=== PATIENT | male | born 1975 | race Caucasian/White ===

== ENCOUNTER 2019-06-18 17:08 | Inpatient (IN) | payer BC ==
[~2019-06-18] VITALS: Ht 180.3 cm; Wt 113.4 kg
--- NOTE | 2019-06-18 17:19 | NUR ---
CAME IN FOR R ELBOW AND ARM SORENESS AND TENDER x 1 DAY. TO ER BED 10, HOOKED TO MONITOR, NO DISTRESS NOTED, CHANGED TO HOSPITAL GOWN, PROVIDED W WARM BLANKET, AWAITING MD JOHNSON.
--- NOTE | 2019-06-18 17:24 | NUR ---
VIRGINIA OREILLY AT BEDSIDE
[2019-06-18] MEDS ORDERED: CLINDAMYCIN 600 MG in IV NS 0.9% 50 ML IV STA (17:28)
[2019-06-18] MEDS ORDERED: ACETAMINOPHEN ES 500 MG TABLET PO ONE (17:30)
[2019-06-18] MEDS: IV NS 0.9% 1,000 ML BAG IV ONE ×2 (17:30→17:44)
[2019-06-18] MEDS ORDERED: CEFTRIAXONE 1GM BAG (ER ONLY) 1 GM/50 ML PIGGYBACK IV ONE (17:30)
[2019-06-18 17:35] LABS: BASOPHILS % (AUTO) 0.1 % (0.0-2.0); EOSINOPHILS % (AUTO) 0.1 % (0.0-6.0); HEMATOCRIT 43 % (39-51); HEMOGLOBIN 14.7 g/dL (13.5-17.5); LYMPHOCYTES # (AUTO) 1.7 /CMM (0.8-4.8); LYMPHOCYTES % (AUTO) 7.9 % (20.0-44.0); MEAN CORPUSCULAR HGB CONC 34 g/dl (31.0-36.0); MEAN CORPUSCULAR VOLUME 88 fL (80-96); MONOCYTES # (AUTO) 1.2 /CMM (0.1-1.30); MONOCYTES % (AUTO) 5.4 % (2.0-12.0); NEUTROPHILS # (AUTO) 18.9 /CMM (1.8-8.9); NEUTROPHILS % (AUTO) 86.5 % (43.0-81.0); PLATELET COUNT (AUTO) 204 /CMM (150-450); RED BLOOD CELL COUNT(AUTO) 4.87 MIL/uL (4.5-6.0); WHITE BLOOD COUNT (AUTO) 21.9 K/uL (4.3-11.0)
[2019-06-18] MEDS ORDERED: ACETAMINOPHEN ES 500 MG TABLET ONE (17:35)
[2019-06-18] MEDS ORDERED: CEFTRIAXONE 1GM BAG (ER ONLY) 50 ML IV ONE (17:35)
[2019-06-18 17:49] LABS: APPEARANCE,URINE Clear (CLEAR); BILIRUBIN,URINE Negative (NEGATIVE); BLOOD, URINE Small Ery/uL (NEGATIVE); COLOR,URINE Yellow (YELLOW); KETONES,URINE 15 (NEGATIVE); LEUKOCYTE ESTERASE ,URINE Negative (NEGATIVE); NITRITE, URINE Negative (NEGATIVE); PROTEIN,URINE 100 mg/dl (NEGATIVE); UGLUCOSE Negative (NEGATIVE); UROBILINOGEN,URINE 0.2 EU/dL (0.2)
[2019-06-18 17:53] LABS: BACTERIA,URINE Few /HPF (None Seen); SQUAMOUS EPITHELIAL CELL,UR Few /HPF (None Seen); WBC,URINE 0-2 /HPF (0-3)
[2019-06-18] MEDS ORDERED: IV NS 0.9% 1,000 ML BAG IV ONE (18:00)
[2019-06-18 18:08] LABS: ALBUMIN 3.9 g/dL (3.4-5.0); BILIRUBIN,DIRECT 0.2 mg/dL (0.0-0.2); BILIRUBIN,TOTAL 1.1 mg/dL (0.2-1.0); CREATININE 1.3 mg/dL (0.6-1.3); POTASSIUM 3.8 mmol/L (3.5-5.1); TOTAL PROTEIN, SERUM 7.3 g/dL (6.4-8.2)
[2019-06-18] MEDS ORDERED: CLINDAMYCIN 600 MG in IV D5W 50 ML IV ONE (18:30)
[2019-06-18] MEDS ORDERED: MAGNESIUM HYDROXIDE 30 ML UDC PO PRN (19:00)
[2019-06-18] MEDS ORDERED: ZOLPIDEM TARTRATE 5 MG TABLET PO PRN (19:00)
[2019-06-18] MEDS ORDERED: ONDANSETRON HCL/PF 4 MG/2 ML VIAL IVP PRN (19:00)
[2019-06-18] MEDS ORDERED: MAG HYDROX/AL HYDROX/SIMETH 30 ML UDC PO PRN (19:00)
[2019-06-18] MEDS ORDERED: Z GUARD REMEDY 2 OZ OINT TP PRN (19:00)
[2019-06-18] MEDS ORDERED: KETOROLAC TROMETHAMINE INJ 30 MG/ML VIAL IV ONE (19:30)
--- NOTE | 2019-06-18 19:30 | NUR ---
REPORT GIVEN TO ÁLVARO WINSLOW FOR MIKEL
--- NOTE | 2019-06-18 19:56 | NUR ---
MS 321-2
[2019-06-18] MEDS ORDERED: KETOROLAC TROMETHAMINE INJ 30 MG/ML VIAL ONE (20:11)
--- NOTE | 2019-06-18 20:20 | NUR ---
REPORT GIVEN TO GOLDY CONTRERAS FOR MIKEL. TO RM 321-2
[2019-06-18 20:30] VITALS: BP 122/71
--- NOTE | 2019-06-18 20:56 | NUR ---
PT TRANSPORTED TO UNIT ON GURNEY WITH EMT AT BEDSIDE. PT IS IN STABEL CONDITION FOR TRANSPORT TO UNIT. NAD NOTED TO TRANSPORT
--- NOTE | 2019-06-18 21:00 | NUR ---
MS RN NOTE: RECEIVED PATIENT FROM ER, NO ACUTE DISTRESS NOTED. BREATHING EVEN AND UNLABORED, NO SOB NOTED. PATIENT WITH IV TO LAC AND RAC #[address] CELLULITIS TO RIGHT ARM NOTED WITH REDNESS AND WARM TO TOUCH WITH NO OPEN AREAS. ORIENTED PATIENT TO ROOM AND USE OF CALL LIGHT. BED LOCKED AND IN LOWEST POSITION. CALL LIGHT IN REACH. WILL CONTINUE TO MONITOR.
[2019-06-18] MEDS: HYDROCODONE/APAP 5/325MG 1 EACH TABLET PO PRN (21:28)
--- NOTE | 2019-06-18 21:45 | NUR ---
MS RN NOTE: PATIENT COMPLAINS OF PAIN TO RIGHT ARM, NORCO 5/325MG 1 TAB ORAL GIVEN PER MD ORDER. WILL CONTINUE TO MONITOR.
[2019-06-19] MEDS ORDERED: CLINDAMYCIN IV RTU IN D5W 900 MG/50 ML PIGGYBACK IV SCH (05:00)
[2019-06-19] MEDS ORDERED: CLINDAMYCIN 900 MG/6 ML VIAL ONE (05:23)
[2019-06-19] MEDS: IV NS 0.9% 1,000 ML IV PRN ×2 (05:26→18:12)
[2019-06-19] MEDS: HYDROCODONE/APAP 5/325MG 1 EACH TABLET PO PRN ×3 (05:29→23:58)
[2019-06-19] MEDS: CLINDAMYCIN 900 MG in IV D5W 50 ML IV SCH ×3 (05:55→20:04)
[2019-06-19 06:04] LABS: BASOPHILS % (AUTO) 0.1 % (0.0-2.0); EOSINOPHILS % (AUTO) 0.1 % (0.0-6.0); HEMATOCRIT 40 % (39-51); HEMOGLOBIN 13.6 g/dL (13.5-17.5); LYMPHOCYTES # (AUTO) 1.8 /CMM (0.8-4.8); MEAN CORPUSCULAR HGB CONC 34 g/dl (31.0-36.0); MEAN CORPUSCULAR VOLUME 89 fL (80-96); MONOCYTES # (AUTO) 1.2 /CMM (0.1-1.30); NEUTROPHILS # (AUTO) 17.1 /CMM (1.8-8.9); NEUTROPHILS % (AUTO) 84.8 % (43.0-81.0); PLATELET COUNT (AUTO) 187 /CMM (150-450); RED BLOOD CELL COUNT(AUTO) 4.53 MIL/uL (4.5-6.0); WHITE BLOOD COUNT (AUTO) 20.2 K/uL (4.3-11.0)
[2019-06-19 06:23] LABS: CALCIUM, SERUM 8.5 mg/dL (8.5-10.1); CREATININE 1.1 mg/dL (0.6-1.3); MAGNESIUM 1.9 mg/dL (1.8-2.4); POTASSIUM 3.9 mmol/L (3.5-5.1)
--- NOTE | 2019-06-19 06:30 | NUR ---
MS RN NOTE: RECEIVED PATIENT FROM ER, NO ACUTE DISTRESS NOTED. BREATHING EVEN AND UNLABORED, NO SOB NOTED. PATIENT WITH IV TO LAC IN PLACE, INFUSING NS AT 75ML/HR. BED LOCKED AND IN LOWEST POSITION. CALL LIGHT IN REACH. WILL ENDORSE TO DAY NURSE TO CONTINUE WITH PLAN OF CARE.
[2019-06-19 08:00] VITALS: BP 132/68
[2019-06-19] MEDS ORDERED: K PHOS NEUTRAL 250 MG TABLET PO ONE (11:30)
[2019-06-19 16:00] VITALS: BP 132/69
--- NOTE | 2019-06-19 19:35 | NUR ---
MS/RN OPENING NOTES PT RECEIVED AWAKE, RESTING COMFORTABLY IN BED. A/OX3. ON ROOM AIR, BREATHING EVEN AND UNLABORED. DENIES SOB AT THIS TIME. C/O HEADACHE 11/26, REQUESTING TYLENOL. IV TO LAC PATENT AND INTACT RUNNING IVF ORDERED. RIGHT ARM SWOLLEN AND RED, OUTLINED WITH MARKER TO MONITOR IF REDNESS IS INCREASING. NO NEEDS EXPRESSED AT THIS TIME. RIGHT ARM ELEVATED ON PILLOW. BED IN LOW/LOCKED POSITION WITH CALL LIGHT IN REACH. SEMI FOWLERS IN BED .WILL CONTINUE TO MONITOR
[2019-06-19] MEDS: ACETAMINOPHEN 325 MG TABLET PO PRN (19:58)
[2019-06-19 20:00] VITALS: BP_SYST 111; BP_SYST 115; BP_DIAS 59; BP_DIAS 63
--- NOTE | 2019-06-20 | NUR ---
MS/RN NOTES PT C/O PAIN TO RIGHT ARM 01/26. ADMINISTERED PRN NORCO ORDERED .WILL MONITOR FOR EFFECTIVENESS.
[2019-06-20] MEDS: CLINDAMYCIN 900 MG in IV D5W 50 ML IV SCH ×2 (05:11→12:37)
--- NOTE | 2019-06-20 07:20 | NUR ---
MS/RN CLOSING NOTES PT ASLEEP, RESPONSIVE TO NAME. ON ROOM AIR, BREATHING EVEN AND UNLABORED. DENIES SOB AND PAIN AT THIS TIME. IV TO LAC PATENT AND INTACT RUNNING IVF ORDERED. NO SIGNIFICANT CHANGES OVERNIGHT. BED IN LOW/LOCKED POSITION WITH CALL LIGHT IN REACH. SIDE RAILS UPX2. ENDORSED TO DAY SHIFT GOLDY MORIN.
[2019-06-20 07:31] LABS: CALCIUM, SERUM 8.7 mg/dL (8.5-10.1); CREATININE 1.1 mg/dL (0.6-1.3); PHOSPHORUS 2.5 mg/dL (2.5-4.9); POTASSIUM 3.6 mmol/L (3.5-5.1)
--- NOTE | 2019-06-20 07:50 | NUR ---
MS RN OPENING NOTES RECEIVED PT LAYING IN BED WITH HOB ELEVATED, RESTING COMFORTABLY. PT IS A/O X4, AFEBRILE. RESPIRATIONS ARE EVEN AND UNLABORED, NOT IN ANY ACUTE DISTRESS NOTED. PT C/O PAIN 5/10 TO RIGHT ARM, WILL MEDICATE ACCORDINGLY. DENIES ANY SOB, N/V. IV SITE TO LAC G18 INTACT, NO INFILTRATION NOTED. DRESSING KEPT CLEAN AND DRY. SAFETY MEASURES ARE IN PLACE. INSTRUCTED PT TO USE CALL LIGHT WHEN ASSISTANCE IS NEEDED. WILL MONITOR THROUGHOUT SHIFT FOR CONTINUITY OF CARE.
[2019-06-20 08:00] VITALS: BP 133/79
[2019-06-20] MEDS: IV NS 0.9% 1,000 ML IV PRN (08:23)
--- NOTE | 2019-06-20 09:00 | NUR ---
MS RN NOTES-- PT REQUESTED FOR NEW ROOM. PT MOVED TO RM 320-2.
[2019-06-20] MEDS: HYDROCODONE/APAP 5/325MG 1 EACH TABLET PO PRN (09:17)
[2019-06-20] MEDS ORDERED: CIPROFLOXACIN IV RTU 400 MG in PREMIX 1 EA IV SCH (12:00)
--- NOTE | 2019-06-20 13:13 | NUR ---
MS RN NOTES-- CALLED PHARMACY RE: CIPRO ABX TO BE ADMINISTERED AT 12. PER PHARMACY, INSPECTION IS BEING DONE AND HAVE NO ACCESS TO IV ROOM. PT NOTIFIED AND STATED "THATS OKAY."
[2019-06-20 16:00] VITALS: BP 127/68
--- NOTE | 2019-06-20 18:23 | NUR ---
MS RN CLOSING NOTES ALL DUE MEDS GIVEN, NEEDS MET AND RENDERED. PT IS A/O X4, AFEBRILE. RESPIRATIONS ARE EVEN AND UNLABORED, NOT IN ANY ACUTE DISTRESS NOTED. PT DENIES ANY PAIN AT THIS TIME, NO C/O OF ANY SOB, N/V. IV ACCESS TO LAC INTACT, NO INFILTRATION NOTED. DRESSING KEPT CLEAN AND DRY. SAFETY MEASURES ARE IN PLACE. REMINDED PT TO USE CALL LIGHT WHEN ASSISTANCE IS NEEDED, CALL LIGHT IS LEFT WITHIN REACH.
[2019-06-20] MEDS ORDERED: FEE PK DOSING 1 MIN EA MC ONE (18:53)
[2019-06-20] MEDS ORDERED: VANCOMYCIN 1.5 GM in IV D5W 500 ML IV SCH (19:00)
--- NOTE | 2019-06-20 19:30 | NUR ---
RECEIVED PATIENT IN BED AWAKE. AO X 3, ABLE TO MAKE NEEDS KNOWN. NO ACUTE DISTRESS NOTED. DENIES ANY PAIN AT THIS TIME. IV SITE PATENT, INTACT; IVF INFUSING ORDERED. SAFETY REMINDERS GIVEN. ON LOW BED WITH BILATERAL UPPER SIDE RAILS UP. CALL HARVEY WITHIN EASY REACH. WILL CONTINUE TO MONITOR.
[2019-06-20 20:00] VITALS: BP 126/72
[2019-06-20] MEDS: VANCOMYCIN 1.25 GM in IV D5W 500 ML IV SCH (20:15)
[2019-06-20 20:54] VITALS: BP 126/72
[2019-06-20] MEDS: PIPERACILLIN /TAZOBACTAM 3.375 G in IV D5W 50 ML IV SCH (22:15)
--- NOTE | 2019-06-21 | NUR ---
PATIENT ASLEEP, IN STABLE CONDITION.
[2019-06-21] MEDS: PIPERACILLIN /TAZOBACTAM 3.375 G in IV D5W 50 ML IV SCH ×4 (03:36→21:55)
[2019-06-21] MEDS: VANCOMYCIN 1.25 GM in IV D5W 500 ML IV SCH ×3 (04:18→19:58)
--- NOTE | 2019-06-21 06:30 | NUR ---
PATIENT ASLEEP, EASILY AROUSABLE. RESPIRATIONS EVEN. NO SIGNS OF PAIN NOTED. DUE MEDS GIVEN WITH NO ASE NOTED. IVF INFUSING ORDERED. NEEDS ATTENDED. SAFETY PRECAUTIONS AND COMFORT MEASURES IN PLACE. WILL GIVE REPORT TO DAY SHIFT FOR CONTINUITY OF CARE.
[2019-06-21 07:31] LABS: BASOPHILS % (AUTO) 0.2 % (0.0-2.0); EOSINOPHILS % (AUTO) 1.1 % (0.0-6.0); HEMATOCRIT 42 % (39-51); HEMOGLOBIN 14.3 g/dL (13.5-17.5); LYMPHOCYTES # (AUTO) 1.1 /CMM (0.8-4.8); LYMPHOCYTES % (AUTO) 10.6 % (20.0-44.0); MEAN CORPUSCULAR HGB CONC 34 g/dl (31.0-36.0); MEAN CORPUSCULAR VOLUME 88 fL (80-96); MONOCYTES # (AUTO) 0.6 /CMM (0.1-1.30); MONOCYTES % (AUTO) 5.6 % (2.0-12.0); NEUTROPHILS # (AUTO) 8.6 /CMM (1.8-8.9); NEUTROPHILS % (AUTO) 82.5 % (43.0-81.0); PLATELET COUNT (AUTO) 220 /CMM (150-450); RED BLOOD CELL COUNT(AUTO) 4.75 MIL/uL (4.5-6.0); WHITE BLOOD COUNT (AUTO) 10.4 K/uL (4.3-11.0)
--- NOTE | 2019-06-21 07:41 | NUR ---
MS RN OPENING NOTES RECEIVED PT LAYING IN BED WITH HOB ELEVATED, RESTING COMFORTABLY. PT IS A/O X4, AFEBRILE. RESPIRATIONS ARE EVEN AND UNLABORED, NOT IN ANY ACUTE DISTRESS NOTED. DENIES ANY PAIN AT THIS TIME, NO C/O ANY SOB, N/V. IV SITE TO LAC G18 INTACT, NO INFILTRATION NOTED. DRESSING KEPT CLEAN AND DRY. SAFETY MEASURES ARE IN PLACE. INSTRUCTED PT TO USE CALL LIGHT WHEN ASSISTANCE IS NEEDED. WILL MONITOR THROUGHOUT SHIFT FOR CONTINUITY OF CARE.
[2019-06-21 07:48] LABS: CALCIUM, SERUM 8.7 mg/dL (8.5-10.1); CREATININE 1.2 mg/dL (0.6-1.3); MAGNESIUM 1.9 mg/dL (1.8-2.4); PHOSPHORUS 3.1 mg/dL (2.5-4.9); POTASSIUM 3.8 mmol/L (3.5-5.1)
[2019-06-21 08:00] VITALS: BP 130/78
--- NOTE | 2019-06-21 11:15 | NUR ---
MS RN NOTES-- PT SEEN AND EXAMINED BY JOO VALENTINE.
[2019-06-21] MEDS: IV NS 0.9% 1,000 ML IV PRN (11:17)
--- NOTE | 2019-06-21 12:01 | NUR ---
MS RN NOTES-- CALLED PHARMACY, SPOKE W/ JAGDISH RE: VANCO TROUGH. PER JAGDISH, "TO CONTINUE VANCO."
--- NOTE | 2019-06-21 13:12 | NUR ---
MS RN NOTES-- NEW PERIPHERAL IV INSERTION TO LFA G20. PT TOLERATED WELL. DRESSING KEPT CLEAN AND DRY. WILL CONTINUE TO MONITOR.
[2019-06-21] MEDS: ACETAMINOPHEN 325 MG TABLET PO PRN (15:59)
[2019-06-21 16:00] VITALS: BP 127/76
[2019-06-21] MEDS: LACTOBACILLUS RHAMNOSUS GG 1 EACH CAP.SPRINK PO SCH (16:00)
--- NOTE | 2019-06-21 18:19 | NUR ---
MS RN CLOSING NOTES ALL DUE MEDS GIVEN, NEEDS MET AND RENDERED. PT IS A/O X4, AFEBRILE. RESPIRATIONS ARE EVEN AND UNLABORED, NOT IN ANY ACUTE DISTRESS NOTED. PT DENIES ANY PAIN AT THIS TIME, NO C/O OF ANY SOB, N/V. IV ACCESS TO LFA G20 INTACT, NO INFILTRATION NOTED. DRESSING KEPT CLEAN AND DRY. SAFETY MEASURES ARE IN PLACE. REMINDED PT TO USE CALL LIGHT WHEN ASSISTANCE IS NEEDED, CALL LIGHT IS LEFT WITHIN REACH.
[2019-06-21 20:00] VITALS: BP 125/76
[2019-06-22] MEDS: PIPERACILLIN /TAZOBACTAM 3.375 G in IV D5W 50 ML IV SCH ×2 (03:33→08:34)
[2019-06-22] MEDS: VANCOMYCIN 1.25 GM in IV D5W 500 ML IV SCH (04:13)
[2019-06-22 06:28] LABS: BASOPHILS % (AUTO) 0.1 % (0.0-2.0); HEMATOCRIT 44 % (39-51); LYMPHOCYTES # (AUTO) 0.9 /CMM (0.8-4.8); LYMPHOCYTES % (AUTO) 11.2 % (20.0-44.0); MEAN CORPUSCULAR HGB CONC 34 g/dl (31.0-36.0); MEAN CORPUSCULAR VOLUME 87 fL (80-96); MONOCYTES # (AUTO) 0.8 /CMM (0.1-1.30); MONOCYTES % (AUTO) 10.2 % (2.0-12.0); NEUTROPHILS # (AUTO) 5.9 /CMM (1.8-8.9); NEUTROPHILS % (AUTO) 73.5 % (43.0-81.0); PLATELET COUNT (AUTO) 246 /CMM (150-450)
[2019-06-22 07:08] LABS: CREATININE 1.3 mg/dL (0.6-1.3); MAGNESIUM 2.1 mg/dL (1.8-2.4); PHOSPHORUS 3.9 mg/dL (2.5-4.9); POTASSIUM 4.3 mmol/L (3.5-5.1)
--- NOTE | 2019-06-22 07:25 | NUR ---
MS RN OPENING NOTES RECEIVED PT LAYING IN BED WITH HOB ELEVATED, RESTING COMFORTABLY. PT IS A/O X4, AFEBRILE. RESPIRATIONS ARE EVEN AND UNLABORED, NOT IN ANY ACUTE DISTRESS NOTED. DENIES ANY PAIN AT THIS TIME, NO C/O ANY SOB, N/V. IV SITE TO LFA G20 INTACT, NO INFILTRATION NOTED. DRESSING KEPT CLEAN AND DRY. SAFETY MEASURES ARE IN PLACE. INSTRUCTED PT TO USE CALL LIGHT WHEN ASSISTANCE IS NEEDED. WILL MONITOR THROUGHOUT SHIFT FOR CONTINUITY OF CARE.
[2019-06-22 08:00] VITALS: BP 150/89
[2019-06-22] MEDS: LACTOBACILLUS RHAMNOSUS GG 1 EACH CAP.SPRINK PO SCH (08:34)
[2019-06-22] MEDS ORDERED: AMOX-430 PO (11:30)
[2019-06-22] MEDS ORDERED: SULF1TAB48 PO (11:30)
--- NOTE | 2019-06-22 12:30 | NUR ---
MS DETACKER NOTE PT DISCHARGED TO HOME IN MEDICALLY STABLE CONDITION. PT IS A/O X4, AFEBRILE. RESPIRATIONS ARE EVEN AND UNLABORED, NOT IN ANY ACUTE DISTRESS NOTED. PUPILS ARE REACTIVE TO LIGHT, BILATERAL HAND WRAPPING CLERK ARE STRONG AND EQUAL. DENIES ANY PAIN, SOB, N/V. ABDOMEN IS ROUND, SOFT AND NONDISTENDED AT THIS TIME, BOWEL SOUNDS ARE PRESENT IN ALL 4 QUADRANTS UPON AUSCULTATION. DENIES ANY BLADDER DISCOMFORT. PT IS AMBULATORY. NO SKIN ISSUES NOTED. SKIN IS KEPT CLEAN AND DRY, INTACT. IV ACCESS REMOVED, APPLIED PRESSURE AND TOLERATED WELL. ALL BELONGINGS SENT WITH PT. EXPLAINED DISCHARGE PAPERWORK WITH VERBAL AND WRITTEN UNDERSTANDING. PT STATED HE NEEDS TO LEAVE NOW TO CATCH THE BUS. PT LEFT IN MEDICALLY STABLE CONDITION. Addendum: 06/22/19 at 1245 by ANTHONY JACOBS RN PT LEFT WITH UBER, NOT BUS.
== END 2019-06-22 12:30 | disposition home or self-care (01) | DRG 872 ==
LOC: ER 17:16 → MED 19:57
PROVIDERS: ADMIT Internal Medicine; ATTEND Registered Nurse
DX: A41.9 Sepsis, unspecified organism (principal); L03.113 Cellulitis of right upper limb; W55.01XA Bitten by cat, initial encounter; Y92.89 Other specified places as the place of occurrence of the external cause; D72.829 Elevated white blood cell count, unspecified; R00.0 Tachycardia, unspecified; E66.9 Obesity, unspecified; Z68.34 Body mass index [BMI] 34.0-34.9, adult
CPT/HCPCS: 36415; 80048-TC; 80076-TC; 80202-TC; 81000-TC; 82550-TC; 83605-TC; 83690-TC; 83735-TC; 84100-TC; 85025-TC; 87040-TC; 87081-TC; 87086-TC; 93971-TC; A4216; G0378; J0696; J0744; J1885; J2543; J3370; J3490; J7030; J7050; J7060